=== PATIENT | male | born 1990 | race Caucasian/White ===

== ENCOUNTER 2019-06-04 01:12 | Emergency (ER) | payer MEDICAID, OTHER ==
[~2019-06-04] VITALS: Ht 177.8 cm; Wt 74.8 kg
[2019-06-04] MEDS ORDERED: ACETAMINOPHEN 500 MG TAB PO ONE (04:30)
[2019-06-04 04:46] VITALS: BP 144/87
== END 2019-06-04 05:29 | disposition home or self-care (01) ==
LOC: ER 01:14
DX: S01.81XA Laceration without foreign body of other part of head, initial encounter (principal); Y04.2XXA Assault by strike against or bumped into by another person, initial encounter; Y93.89 Activity, other specified; Y92.098 Other place in other non-institutional residence as the place of occurrence of the external cause; Y99.8 Other external cause status
CPT/HCPCS: 12013; 70450